=== PATIENT | female | born 1950 | race Caucasian/White ===

== ENCOUNTER 2021-12-26 19:35 | Inpatient (IN) ==
[2021-12-26] MEDS ORDERED: ONDANSETRON 4 MG/2 ML VIAL IV STA (20:17)
[2021-12-26 20:20] LABS: Basophils # 0.1 10*3/uL (0.0-0.2); Basophils % 0.4 % (0.0-0.8); Eosinophils # 0.1 10*3/uL (0.0-0.87); Eosinophils % 0.6 % (0.00-10.9); Hematocrit 24.3 VOL% (35.7-47.0); Immature Granulocytes % 0.8 %; Lymphocytes % 15.7 % (21.3-54.2); Mean Corpuscular HGB Conc 24.3 GM/DL (32-36); Mean Corpuscular Volume 64.5 FL (87-102); Mean Platelet Volume 9.8 FL (9.6-12.0); Monocytes % 6.4 % (1.7-12.7); NRBC # 0.02 10*3/uL; Neutrophils % 76.1 % (38.7-73.9); Platelet Count 396 T/CUMM (130-400); Red Blood Count 3.77 MC/CUMM (3.8-5.5); Red Cell Distribution Width 19.9 % (9.3-17.3); White Blood Count 12.7 T/CUMM (4-12)
[2021-12-26 20:23] LABS: Hemoglobin 5.9 GM/DL (12.0-16.0)
[2021-12-26 20:45] LABS: Alanine Aminotransferase 22 U/L (13-56); Albumin 3.9 G/DL (3.4-5.0); Alkaline Phosphatase 111 U/L (45-117); Aspartate Amino Transferase 18 U/L (0-37); Bilirubin,Total < 0.39 MG/DL (0.20-1.00); Blood Urea Nitrogen 13 MG/DL (7-18); Calcium 9.6 MG/DL (8.5-10.1); Carbon Dioxide 25 MMOL/L (21-32); Estimated Glom Filtration Rate 72 ML/MIN; Glucose 156 MG/DL (74-106); Osmolality,Calculated 279.5 MOS/KG (273-304); Potassium 3.4 MMOL/L (3.5-5.1); Sodium 139 MMOL/L (136-145); Total Protein 6.8 G/DL (6.4-8.2)
[2021-12-26] MEDS ORDERED: SODIUM CHLORIDE 0.9% 1,000 ML IV PRN (20:46)
[2021-12-26] MEDS ORDERED: POTASSIUM CHLORIDE 20 MEQ TABLET PO STA (20:50)
[2021-12-26 20:52] LABS: INR 0.9; PT Patient Result 10.4 SECS (10.5-12.0)
[2021-12-26 21:45] LABS: % Iron Saturation 2.3 % (18-50); Ferritin 2.4 ng/mL (8-252); Free T4 (Free Thyroxine) 0.93 NG/DL (0.76-1.46); Iron 10 UG/DL (50-170); Iron Binding Capacity 432 UG/DL (250-450)
[2021-12-26 21:46] LABS: Bacteria,Urine Occasional /HPF (Few); Bilirubin,Urine Negative (Negative); Blood, Urine Negative (Negative); Calcium Oxalate Crystals,Urine Moderate /HPF (Few); Glucose,Urine (UA) Negative (Negative); Hyaline Casts,Urine 1 /LPF (0-3); Ketones,Urine Negative (Negative); Mucus,Urine Occasional /LPF (Occasional); Nitrite,Urine Negative (Negative); Protein,Urine Negative; RBC,Urine 2 /HPF (0-4); Squamous Epithelial Cell,Urine Occasional /HPF (0-10); Urine Appearance CLEAR (Clear); Urine Color Yellow (Yellow); Urine Urobilinogen < 2.0 EU/DL (<2.0)
[2021-12-26] MEDS ORDERED: ONDANSETRON 4 MG/2 ML VIAL IV PRN (23:32)
[2021-12-26] MEDS ORDERED: hydrALAZINE 20 MG/1 ML VIAL IV PRN (23:32)
[2021-12-26] MEDS ORDERED: ALBUTEROL/IPRATROPIUM 3 ML NEB RESP TX PRN (23:32)
[2021-12-27] MEDS: SODIUM CHLORIDE 0.9% 1,000 ML IV SCH ×3 (03:41→20:33)
[2021-12-27 04:23] LABS: Hematocrit 28.3 VOL% (35.7-47.0)
[2021-12-27 04:29] LABS: Hemoglobin 7.7 GM/DL (12.0-16.0)
[2021-12-27 07:02] LABS: Basophils # 0.1 10*3/uL (0.0-0.2); Basophils % 0.5 % (0.0-0.8); Eosinophils # 0.1 10*3/uL (0.0-0.87); Eosinophils % 0.7 % (0.00-10.9); Hemoglobin 7.4 GM/DL (12.0-16.0); Immature Granulocytes % 0.8 %; Immature Granulocytes Absolute 0.08 #; Lymphocytes # 1.8 10*3/uL (1.4-4.0); Mean Corpuscular HGB Conc 27.8 GM/DL (32-36); Mean Corpuscular Volume 69.8 FL (87-102); Mean Platelet Volume 9.7 FL (9.6-12.0); Monocytes % 7.4 % (1.7-12.7); NRBC # 0.03 10*3/uL; Neutrophils % 72.6 % (38.7-73.9); Platelet Count 303 T/CUMM (130-400); Red Blood Count 3.81 MC/CUMM (3.8-5.5); Red Cell Distribution Width 25.4 % (9.3-17.3)
[2021-12-27 07:09] LABS: Hematocrit 26.6 VOL% (35.7-47.0)
[2021-12-27 07:19] LABS: Anisocytosis 1+; Hypochromia 2+; Microcytosis 1+; Ovalocytes Slight; Polychromasia Slight
[2021-12-27 07:20] LABS: Platelet Estimate Normal
[2021-12-27 07:20] LABS: Albumin 3.2 G/DL (3.4-5.0); Calcium 8.9 MG/DL (8.5-10.1); Osmolality,Calculated 279.3 MOS/KG (273-304); Potassium 4.1 MMOL/L (3.5-5.1); Risk Ratio 2.91; Total Protein 6.5 G/DL (6.4-8.2)
[2021-12-27 07:33] LABS: Bilirubin,Total 0.5 MG/DL (0.20-1.00)
[2021-12-27] MEDS: PANTOPRAZOLE 40 MG VIAL IV SCH ×2 (08:46→20:33)
[2021-12-27] MEDS: FERRIC GLUCONATE COMPLEX 125 MG in SODIUM CHLORIDE 0.9% 100 ML IV SCH (08:46)
[2021-12-27] MEDS ORDERED: IRON SUCROSE 200 MG in SODIUM CHLORIDE 0.9% 100 ML IV SCH (09:00)
[2021-12-27] MEDS ORDERED: PANTOPRAZOLE 40 MG VIAL IV SCH (09:00)
[2021-12-27] MEDS ORDERED: cloNIDine 0.1 MG TABLET PO PRN (10:51)
[2021-12-27] MEDS ORDERED: SERTRALINE 25 MG TABLET PO ONE (11:29)
[2021-12-27 12:08] LABS: Hematocrit 30.3 VOL% (35.7-47.0); Hemoglobin 8.3 GM/DL (12.0-16.0)
[2021-12-27] MEDS: amLODIPine 10 MG TABLET PO SCH (12:48)
[2021-12-27] MEDS: SERTRALINE 25 MG TABLET PO SCH (20:32)
[2021-12-27] MEDS: MELATONIN 3 MG TABLET PO SCH (20:32)
[2021-12-28 07:29] LABS: Hypochromia 4+; Ovalocytes Few; Polychromasia 1+; Schistocytes Few; Stomatocytes Few; Tear Drop Cells Few
[2021-12-28 07:30] LABS: Microcytosis 3+; Platelet Estimate Normal
[2021-12-28 07:39] LABS: Basophils # 0.1 10*3/uL (0.0-0.2); Basophils % 0.5 % (0.0-0.8); Eosinophils # 0.2 10*3/uL (0.0-0.87); Eosinophils % 1.7 % (0.00-10.9); Folate 9.24 NG/ML (5.38-24.0); Hematocrit 27.6 VOL% (35.7-47.0); Hemoglobin 7.3 GM/DL (12.0-16.0); Immature Granulocytes % 0.6 %; Immature Granulocytes Absolute 0.06 #; Lymphocytes # 2.2 10*3/uL (1.4-4.0); Lymphocytes % 23.1 % (21.3-54.2); Mean Corpuscular HGB Conc 26.4 GM/DL (32-36); Mean Corpuscular Volume 71.3 FL (87-102); Mean Platelet Volume 10.1 FL (9.6-12.0); Monocytes % 6.8 % (1.7-12.7); NRBC # 0.03 10*3/uL; Neutrophils % 67.3 % (38.7-73.9); Platelet Count 327 T/CUMM (130-400); Red Blood Count 3.87 MC/CUMM (3.8-5.5); Red Cell Distribution Width 25.3 % (9.3-17.3); White Blood Count 9.4 T/CUMM (4-12)
[2021-12-28 07:43] LABS: Albumin 3.3 G/DL (3.4-5.0); Bilirubin,Total 0.6 MG/DL (0.20-1.00); Calcium 9.4 MG/DL (8.5-10.1); Osmolality,Calculated 278.3 MOS/KG (273-304); Potassium 4.1 MMOL/L (3.5-5.1); Total Protein 6.5 G/DL (6.4-8.2)
[2021-12-28] MEDS ORDERED: amLODIPine 10 MG TABLET PO SCH (09:00)
[2021-12-28] MEDS ORDERED: SODIUM CHLORIDE 0.9% 1,000 ML IV PRN (09:54)
[2021-12-28] MEDS: FERRIC GLUCONATE COMPLEX 125 MG in SODIUM CHLORIDE 0.9% 100 ML IV SCH (09:59)
[2021-12-28] MEDS: amLODIPine 10 MG TABLET PO SCH ×2 (09:59→17:12)
[2021-12-28] MEDS: PANTOPRAZOLE 40 MG VIAL IV SCH ×2 (09:59→20:38)
[2021-12-28] MEDS: LACTATED RINGERS 1,000 ML IV SCH (11:52)
[2021-12-28] MEDS ORDERED: LIDOCAINE 2% 5 ML VIAL ONE (13:00)
[2021-12-28] MEDS ORDERED: propofoL 200 MG/20 ML VIAL IV ONE (13:00)
[2021-12-28 18:09] LABS: Hematocrit 30.9 VOL% (35.7-47.0); Hemoglobin 8.4 GM/DL (12.0-16.0)
[2021-12-28] MEDS: SERTRALINE 25 MG TABLET PO SCH (20:36)
[2021-12-28] MEDS: MELATONIN 3 MG TABLET PO SCH (20:37)
[2021-12-29 07:09] LABS: Albumin 3.3 G/DL (3.4-5.0); Bilirubin,Total 0.6 MG/DL (0.20-1.00); Calcium 9.8 MG/DL (8.5-10.1); Osmolality,Calculated 276.4 MOS/KG (273-304); Potassium 3.7 MMOL/L (3.5-5.1); Total Protein 6.5 G/DL (6.4-8.2)
[2021-12-29 07:10] LABS: Basophils # 0.1 10*3/uL (0.0-0.2); Basophils % 0.5 % (0.0-0.8); Eosinophils # 0.1 10*3/uL (0.0-0.87); Eosinophils % 1.1 % (0.00-10.9); Hematocrit 29.8 VOL% (35.7-47.0); Immature Granulocytes % 0.7 %; Immature Granulocytes Absolute 0.07 #; Lymphocytes # 2.1 10*3/uL (1.4-4.0); Lymphocytes % 19.6 % (21.3-54.2); Mean Corpuscular HGB Conc 27.2 GM/DL (32-36); Mean Corpuscular Volume 70.3 FL (87-102); Mean Platelet Volume 9.8 FL (9.6-12.0); Monocytes % 7.1 % (1.7-12.7); NRBC # 0.02 10*3/uL; Platelet Count 336 T/CUMM (130-400); Red Blood Count 4.24 MC/CUMM (3.8-5.5); Red Cell Distribution Width 26.4 % (9.3-17.3); White Blood Count 10.6 T/CUMM (4-12)
[2021-12-29 07:11] LABS: Hemoglobin 8.1 GM/DL (12.0-16.0)
[2021-12-29 07:21] LABS: Hypochromia 1+; Microcytosis 1+; Platelet Estimate Normal
[2021-12-29] MEDS: amLODIPine 10 MG TABLET PO SCH (10:05)
[2021-12-29] MEDS: FERRIC GLUCONATE COMPLEX 125 MG in SODIUM CHLORIDE 0.9% 100 ML IV SCH (10:10)
[2021-12-29] MEDS: PANTOPRAZOLE 40 MG VIAL IV SCH (10:10)
[2021-12-29 11:17] VITALS: BP 152/73
[2021-12-29] MEDS: LACTATED RINGERS 1,000 ML IV SCH (12:52)
[2021-12-30] MEDS ORDERED: INFLUENZA VIRUS VACCINE 0.5 ML SYRINGE IM ONE (09:00)
== END 2021-12-29 12:35 | disposition home or self-care (01) | DRG 811 ==
LOC: N.ED 19:35 → N.EDINP 23:26 → N.TELES 12-27 04:12
PROVIDERS: ADMIT Internal Medicine; ATTEND Internal Medicine